=== PATIENT | male | born 1975 | race Caucasian/White ===

== ENCOUNTER 2016-10-17 17:30 | Emergency (ER) | payer MEDICAID ==
[2016-10-17 17:44] VITALS: RESP 16; TEMP 98.2
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
[2016-10-17] MEDS ORDERED: OXYCODONE/APAP 5/325 TAB PO ONE (18:14)
[2016-10-17 19:57] VITALS: BP 130/76; PULSE 86; O2SAT 97
== END 2016-10-17 19:56 | disposition home or self-care (01) ==
DX: S62.114A Nondisplaced fracture of triquetrum [cuneiform] bone, right wrist, initial encounter for closed fracture (principal); S52.514A Nondisplaced fracture of right radial styloid process, initial encounter for closed fracture; V27.4XXA Motorcycle driver injured in collision with fixed or stationary object in traffic accident, initial encounter; Y92.410 Unspecified street and highway as the place of occurrence of the external cause; Y99.8 Other external cause status; Y93.89 Activity, other specified

== ENCOUNTER 2017-03-30 09:08 | Emergency (ER) | payer MEDICAID ==
[2017-03-30 09:16] VITALS: TEMP 97.9
[2017-03-30] MEDS ORDERED: TDAP ADULT 0.5 ML INJ (BOOSTRIX) IM ONE (09:34)
--- NOTE | 2017-03-30 09:47 | EDPHY ---
General Narrative: CHIEF COMPLAINT: Spider bites, cough HISTORY OF PRESENT ILLNESS: Patient complains of spider bite to the left hand and left thigh. He feels this happened 2 days ago. He did not witness it. He is concerned because the 1 on the left finger and left hand "came to a head so I popped it." Mildly painful. He is more concerned about the possibility of infection. He has also had a cough that has been producing mucus only. No fever. No body aches. No neck pain or stiffness. He is concerned because he leaves sleep for the homeless detention. No modifying factors. No other associated complaints REVIEW OF SYSTEMS: Ten systems reviewed and are negative unless otherwise noted in the HPI PCP: [facility] SPECIALISTS: [facility] PAST MEDICAL HISTORY: Attention deficit hyperactivity disorder, ADD, intermittent aggressive explosive disorder, bipolar disorder, neuropathy PAST SURGICAL HISTORY: Appendectomy SOCIAL HISTORY: Nonsmoker. No alcohol. Occasional marijuana. Currently sleeps at the [facility]. 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 Uvula midline. Airway widely patent Neck: Normal inspection, supple, non-tender Respiratory: Lungs are clear to auscultation. No wheezing, rhonchi or crackles. No distress or retractions Cardiovascular: Regular rate and rhythm Gastrointestinal: Abdomen is soft and nontender Back: non-tender, no bony abnormalities Neurological: A&O, nonfocal, normal gait Skin: Warm and dry, no rash. There are 3 small areas of possible vector inoculation. The 1st is on the dorsum of the left little finger. The seconds on the radial aspect of the distal wrist. The 3rd on the medial left thigh. The little finger does have a small area of fluctuance. There is no surrounding cellulitis or edema. No evidence of septic joint. The remaining 2 areas are indurated but have no fluctuance Extremities: Mild tenderness of the left finger inoculation. There is no warmth to the joint. Full flexion extension of all fingers of the left hand without any evidence of septic joint. No cellulitis of the hand or wrist Psychiatric: Mood and affect normal DIFFERENTIAL DIAGNOSES: Including but not limited to vector inoculation, spider bite, abscess, septic joint, pneumonia, influenza MDM: 9:40 a.m. Three areas of possible vector inoculation without any evidence of septic joint. There is a small abscess that can be drained on the left finger. There is no evidence of pneumonia by examination or vitals. He may have a viral bronchitis versus influenza. Flu test has been ordered. I will drain the left little finger abscess. He is asking to speak with rehabilitation case coordinator 10:40 a.m. Influenza swab is pending. Area of fluctuance has been drained and irrigated. Wound has been dressed. I will discharge him on Bactrim and Keflex. Flu test is pending and he can follow up with this later. He is outside the window for Tamiflu. He is comfortable this plan. He will be discharged home after visiting with case management. ED precautions discussed. Follow up with [facility] PROCEDURE: Digital Block Indication: Finger laceration Consent: Verbal Location: Left little finger Anesthesia: Lidocaine 1% plain, 0.25% Marcaine plain, 5mL Description: Base of the finger was prepped. The above was infused without difficulty. Tolerated well. Good anesthesia. Complications: None PROCEDURE: Incision and Drainage Consent: Verbal Location: Left little finger, middle phalanx, dorsal Length: 1 cm Complexity: Simple Anesthesia: Digital block Procedure description: Area was prepped with Betadine. Using sterile technique , the area of fluctuance was incised with an 18 gauge needle. There was approximately 4 mL of purulence expressed. Tolerated well. No complications Expressed: 4 mL as purulent Wound care: Routine as discussed Follow-up: Two days wound check - History Smoking Status: Never smoked - Objective Vital Signs: Initial Vital Signs Temperature (C) 97.9 F 03/30/17 09:14 Heart Rate 70 03/30/17 09:14 Respiratory Rate 17 03/30/17 09:14 Blood Pressure 123/80 H 03/30/17 09:14 O2 Sat (%) 97 03/30/17 09:14 O2 Delivery Mode Room Air Allergies/Adverse Reactions: No Known Allergies Allergy (Verified 03/30/17 09:13) Home Medications: Medication Instructions Recorded Neurontin 10/17/16 Seroquel 10/17/16 Wellbutrin 100mg (*) 10/17/16 Cephalexin [Keflex (*)] 500 mg PO QID #40 cap 03/30/17 Sulfamethox/Tmp 800/160 mg 1 tab PO BID 10 Days tab 03/30/17 [Bactrim Ds] Laboratory Results: 03/30/17 10:00 Influenza A & B (PCR) Pending Medications Given: Discontinued Medications Diphtheria/Tetanus/Acell Pertussis (Boostrix) 0.5 ml IM .ONCE ONE Stop: 03/30/17 09:35 Last Admin: 03/30/17 09:56 Dose: 0.5 ml Departure - Departure Disposition: Home, Routine, Self-Care Clinical Impression: Abscess of finger, left, Cough Condition: Good Instructions: Abscess Follow-up (ED), Abscess (ED), Dextromethorphan (By mouth) , Guaifenesin (By mouth) Additional Instructions: 1. [id number] medications as printed as needed 2. Bactrim as prescribed to completion 3. Keflex as prescribed to completion 4. Follow up with [facility] 5. ED precautions as discussed Referrals: NONE *PRIMARY CARE P,. [Primary Care Provider] - As per Instructions [facility],. [Clinic] - As per Instructions Trino Rangel MD [Medical Doctor] - As per Instructions Prescriptions: Cephalexin [Keflex (*)] 500 mg PO QID #40 cap Sulfamethox/Tmp 800/160 mg [Bactrim Ds] 1 tab PO BID 10 Days tab
[2017-03-30 10:56] VITALS: BP 126/82; PULSE 80; RESP 18; O2SAT 94
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
== END 2017-03-30 10:55 | disposition home or self-care (01) ==
PROC: 0H9GXZZ Drainage of Left Hand Skin, External Approach (ICD-10-PCS; principal; 2017-03-30)
DX: L02.512 Cutaneous abscess of left hand (principal); R05 Cough; Z23 Encounter for immunization

== ENCOUNTER 2017-07-14 12:13 | Emergency (ER) | payer MEDICAID ==
[2017-07-14] MEDS ORDERED: NS 1,000 ML IV ONE (12:51)
[2017-07-14] MEDS ORDERED: IBUPROFEN 600 MG TAB PO ONE (12:51)
[2017-07-14] MEDS ORDERED: predniSONE 20 MG TAB PO ONE (12:51)
[2017-07-14] MEDS ORDERED: ALBUTEROL 3 ML DEYVIAL IH ONE (12:54)
--- NOTE | 2017-07-14 12:54 | EDPHY ---
H & P Time Seen by Provider: 07/14/17 12:38 HPI/ROS: CHIEF COMPLAINT: Cough for 4 months fever and sore throat HISTORY OF PRESENT ILLNESS: This 41-year-old man presents in his chief complaint is "I have been sick for the past 4 months "but describes for me with his girlfriend really the last 2 weeks of being sick. He has got a subjective fever and chills with a cough productive of some green sputum and a sore throat with decreased oral intake. He says symptoms are severe and he feels dehydrated. No vomiting or diarrhea. No night sweats or weight loss and had a negative PPD recently at [facility]. No IV drugs. REVIEW OF SYSTEMS: Eye: no change in vision ENT: Sore throat but no earache Cardiac: no chest pain or syncope Pulmonary: HPI Abdomen: no vomiting, diarrhea, abdominal pain Musculoskeletal: Myalgias but no neck stiffness Skin: no rash Neuro: no headache Constitutional: HPI : no urinary symptoms, but darker than usual A comprehensive 10 point review of systems is otherwise negative aside from elements mentioned in the history of present illness. PAST MEDICAL HISTORY: Depression and anxiety Social history: Nonsmoker, no IV drugs General Appearance: Alert and conversant, cooperative. Eyes: No scleral icterus. ENT, Mouth: Pharyngeal erythema but no exudate, no trismus, mucous membranes are slightly dry. Uvula is midline and tympanic membranes are normal. Respiratory: Extra wheezing bilaterally but no focal lung sounds and speaks in full sentences. Cardiovascular: Regular rate and rhythm. Gastrointestinal: Abdomen is soft and non tender. Nontender over the liver. Neurological: Alert, face symmetric, normal motor and sensory in extremities. Skin: Warm and dry, no rashes. Musculoskeletal: No peripheral edema. Normal range of motion of the neck. Psychiatric: Not agitated. Emergency Department course/MDM: Normal saline 1 L IV and prednisone 40 mg orally. Will give albuterol nebulizer. Chest x-ray. 1500: Patient feels better, speaking full sentences, discharge with albuterol MDI and short course of prednisone. Smoking Status: Never smoked Constitutional: Initial Vital Signs Temperature (C) 37.3 C 07/14/17 12:16 Heart Rate 92 07/14/17 12:16 Respiratory Rate 16 07/14/17 12:16 Blood Pressure 119/89 H 07/14/17 12:16 O2 Sat (%) 97 01/26/18 12:16 O2 Delivery Mode Room Air Allergies/Adverse Reactions: No Known Allergies Allergy (Verified 03/30/17 09:13) Home Medications: Medication Instructions Recorded Neurontin 10/17/16 Seroquel 10/17/16 Wellbutrin 100mg (*) 10/17/16 Cephalexin [Keflex (*)] 500 mg PO QID #40 cap 03/30/17 Sulfamethox/Tmp 800/160 mg 1 tab PO BID 10 Days tab 03/30/17 [Bactrim Ds] Albuterol Hfa Anes Only [Proair 2 puffs IH QID #1 mdi 07/14/17 Hfa Icu (*)] predniSONE [prednisone 20mg (RX)] 40 mg PO DAILY 4 Days tab 07/14/17 Medical Decision Making - Diagnostics Imaging Results: Imaging Impressions Chest X-Ray 07/14/17 12:51 Impression: Prominence of perihilar interstitial markings and peribronchial cuffing. Findings are nonspecific but can be seen with bronchitis, reactive airway disease, or viral process. Imaging: I viewed and interpreted images myself Differential Diagnosis: Differential for cough and sore throat considered including but not limited to urine, strep throat, influenza, bronchitis, pneumonia, tuberculosis. - Data Points Laboratory Results: Laboratory Results 07/14/17 13:05 07/14/17 13:05 07/14/17 07/14/17 13:05 13:05 WBC 13.30 10^3/uL H 10^3/uL (3.80-9.50) RBC 5.36 10^6/uL 10^6/uL (4.40-6.38) Hgb 17.4 g/dL g/dL (13.7-17.5) Hct 49.1 % % (40.0-51.0) MCV 91.6 fL fL (81.5-99.8) MCH 32.5 pg pg (27.9-34.1) MCHC 35.4 g/dL g/dL (32.4-36.7) RDW 12.6 % % (11.5-15.2) Plt Count 210 10^3/uL 10^3/uL (150-400) MPV 9.6 fL fL (8.7-11.7) Neut % (Auto) 78.4 % H % (39.3-74.2) Lymph % (Auto) 11.5 % L % (15.0-45.0) Kings % (Auto) 8.9 % % (4.5-13.0) Eos % (Auto) 0.5 % L % (0.6-7.6) Baso % (Auto) 0.2 % L % (0.3-1.7) Nucleat RBC Rel Count 0.0 % % (0.0-0.2) Absolute Neuts (auto) 10.43 10^3/uL H 10^3/uL (1.70-6.50) Absolute Lymphs (auto) 1.53 10^3/uL 10^3/uL (1.00-3.00) Absolute Monos (auto) 1.18 10^3/uL H 10^3/uL (0.30-0.80) Absolute Eos (auto) 0.07 10^3/uL 10^3/uL (0.03-0.40) Absolute Basos (auto) 0.03 10^3/uL 10^3/uL (0.02-0.10) Absolute Nucleated RBC 0.00 10^3/uL 10^3/uL (0-0.01) Immature Gran % 0.5 % % (0.0-1.1) Immature Gran # 0.06 10^3/uL 10^3/uL (0.00-0.10) Sodium 142 mEq/L mEq/L (135-145) Potassium 4.5 mEq/L mEq/L (3.5-5.2) Chloride 104 mEq/L mEq/L (97-110) Carbon Dioxide 23 mEq/l mEq/l (22-31) Anion Gap 15 mEq/L mEq/L (8-16) BUN 18 mg/dL mg/dL (7-23) Creatinine 1.0 mg/dL mg/dL (0.7-1.3) Estimated GFR > 60 Glucose 104 mg/dL H mg/dL (70-100) Calcium 9.3 mg/dL mg/dL (8.5-10.4) Medications Given: Discontinued Medications Albuterol (Proventil Neb) 3 ml IH EDNOW ONE Stop: 07/14/17 12:55 Last Admin: 07/14/17 13:41 Dose: 3 ml Sodium Chloride (Ns) 1,000 mls @ 0 mls/hr IV EDNOW ONE; Wide Open PRN Reason: Protocol Stop: 07/14/17 12:52 Last Admin: 07/14/17 13:20 Dose: 1,000 mls Ibuprofen (Motrin) 600 mg PO EDNOW ONE Stop: 07/14/17 12:52 Last Admin: 07/14/17 13:39 Dose: 600 mg Prednisone (Prednisone) 40 mg PO EDNOW ONE Stop: 07/14/17 12:52 Last Admin: 07/14/17 13:38 Dose: 40 mg Departure - Departure Disposition: Home, Routine, Self-Care Clinical Impression: URI (upper respiratory infection) Qualifiers: URI type: unspecified viral URI Qualified Code(s): J06.9 - Acute upper respiratory infection, unspecified Pharyngitis Qualifiers: Pharyngitis/tonsillitis etiology: unspecified etiology Qualified Code(s): J02.9 - Acute pharyngitis, unspecified Condition: Good Instructions: Upper Respiratory Infection (ED) Referrals: [facility],. [Clinic] - As per Instructions Prescriptions: Albuterol Hfa Anes Only [Proair Hfa Icu (*)] 2 puffs IH QID #1 mdi predniSONE [prednisone 20mg (RX)] 40 mg PO DAILY 4 Days tab
[2017-07-14 14:21] LABS: PLATELET COUNT 210 10^3/uL (150-400)
[2017-07-14 14:22] VITALS: RESP 18
[2017-07-14 15:56] VITALS: BP 120/60; PULSE 88; TEMP 98.6; O2SAT 95
== END 2017-07-14 15:30 | disposition home or self-care (01) ==
DX: J06.9 Acute upper respiratory infection, unspecified (principal); E86.9 Volume depletion, unspecified
CPT/HCPCS: J7512; J7613

== ENCOUNTER 2017-07-20 14:13 | Emergency (ER) | payer MEDICAID ==
[2017-07-20 14:20] VITALS: RESP 16; TEMP 102.2
[2017-07-20] MEDS ORDERED: ACETAMINOPHEN 500 MG TAB PO ONE (14:33)
[2017-07-20] MEDS ORDERED: ACETAMINOPHEN 500 MG TAB ONE (14:34)
--- NOTE | 2017-07-20 14:48 | EDPHY ---
HPI/HX/ROS/PE/MDM Narrative: CHIEF COMPLAINT: Fever, cough HISTORY OF PRESENT ILLNESS: The patient is a 41 y/o homeless male complaining of a worsening fever and cough for 4 months. On 07/14/16, 5 days ago, he was seen in the ED for similar symptoms and diagnosed with pharyngitis and a URI. They prescribed him an Albuterol inhaler and Prednisone, but he has had no relief of his symptoms. Since his ED visit his symptoms have been worsening, and are exacerbated at night. In addition to the fever and cough, he has had sweats, a sore throat, and vomited twice. Took Ibuprofen 4 hours ago without relief of symptoms. Denies receiving an influenza vaccination this year. Denies history of asthma. No chest pain, shortness of breath, palpitations, diarrhea, urinary complaints, headache, lightheadedness. Reviewed prior medical records including ED visit with Dr. Ghotra on 07/14/17. REVIEW OF SYSTEMS: Aside from elements discussed in the HPI, a comprehensive 10-point review of systems was reviewed and is negative. PAST MEDICAL HISTORY: Depression, anxiety SOCIAL HISTORY: Friend at bedside, no tobacco or IV drug use VITAL SIGNS: Temp: 39.0, others reviewed by me GENERAL: Frustrated, warm to the touch, well-developed, well-nourished, resting comfortably in no respiratory distress. HEENT: Atraumatic. Eyes: No icterus, no injection. Mouth: moist mucous membranes. No erythema or lesions. Neck: supple with no adenopathy. LUNGS: Tachypneic. Clear to auscultation bilaterally, no wheezes, rhonchi or rales. CARDIAC: Mild tachycardia, no rubs, murmurs or gallops. ABDOMEN: Soft, nontender, nondistended, bowel sounds normal. BACK: No CVA tenderness. EXTREMITIES: No trauma. No edema. Range of motion is normal throughout. NEURO: Alert and oriented, grossly nonfocal. SKIN: Warm and dry, no rash. PSYCHIATRIC: Normal mentation, no agitation. Portions of this note were transcribed by a medical services coordinator. I personally performed a history, physical exam, medical decision making, and confirmed accuracy of information the transcribed note. ED Course: The patient is a 41 y/o male presenting with a cough and fever of 39.0 degrees. On exam he is tachypneic and mildly tachycardic. He was diagnosed with a URI and pharyngitis 5 days ago and prescribed an Albuterol inhaler and Prednisone. His symptoms have worsened since being diagnosed. Chest x-ray and labs ordered. 1gm PO Tylenol and 1L IV NS administered. 1524: Patient's chest x-ray reveals worsening bronchitis. 1619: Spoke with case management regarding this patient. Patient is homeless. He and his tech writer have both been frustrated with the inability to be provided with a place to rest. Case management evaluated the patient and the situation. Unfortunately, the shelters to require that the patient's leave during the day. She will talk to the patient regarding a follow up visit with his PCP. 1637: Patient has influenza B. 1640: Reassessed patient and discussed imaging and laboratory findings. I stressed to the patient and his tech writer the importance of resting when able. He is feeling improved with fluids. Azithromycin has been added to his regiment given the length of cough and provided him with prescriptions for Tylenol and ibuprofen. Return precautions provided; patient is comfortable with this plan. MDM: Differential diagnosis for the patient's cough was considered including but not limited to viral versus bacterial bronchitis, asthma, influenza, pneumonia, pulmonary emboli, upper respiratory infection, lower respiratory infection, and bronchospasm. - Data Points Imaging Results: Impression: 1. Mild bronchitis/airways disease. 2. No definite focal pneumonia. Dictated By: Vladimir Hines Imaging: I viewed and interpreted images myself Laboratory Results: Laboratory Results 07/20/17 15:20 07/20/17 15:20 Medications Given: Discontinued Medications Acetaminophen (Tylenol) 1,000 mg PO EDNOW ONE Stop: 07/20/17 14:34 Last Admin: 07/20/17 14:36 Dose: 1,000 mg Azithromycin (Zithromax) 500 mg PO EDNOW ONE PRN Reason: Protocol Stop: 07/20/17 15:40 Last Admin: 07/20/17 17:16 Dose: 500 mg Sodium Chloride (Ns) 1,000 mls @ 0 mls/hr IV ONCE ONE; Wide Open PRN Reason: Protocol Stop: 07/20/17 14:58 Last Admin: 07/20/17 15:17 Dose: 1,000 mls General Time Seen by Provider: 07/20/17 14:47 Initial Vital Signs: Initial Vital Signs Temperature (C) 39.0 C H 07/20/17 14:18 Heart Rate 102 H 07/20/17 14:18 Respiratory Rate 16 07/20/17 14:18 Blood Pressure 138/84 H 07/20/17 14:18 O2 Sat (%) 97 07/20/17 14:18 O2 Delivery Mode Room Air Allergies/Adverse Reactions: No Known Allergies Allergy (Verified 03/30/17 09:13) Home Medications: Medication Instructions Recorded Neurontin 10/17/16 Seroquel 10/17/16 Wellbutrin 100mg (*) 10/17/16 Acetaminophen [Tylenol 325mg (*)] 650 mg PO Q4 PRN #30 tab 07/20/17 Azithromycin [Zithromax] 250 mg PO DAILY #4 tab 07/20/17 Ibuprofen 600 mg PO Q8 PRN #20 tablet 07/20/17 Departure - Departure Disposition: Home, Routine, Self-Care Clinical Impression: Bronchitis, Influenza B Condition: Good Instructions: Influenza (ED), Acute Bronchitis (ED) Additional Instructions: Take Azithromycin as prescribed for bronchitis. You have an appointment with [facility] on Monday07/26/17 at 12pm ( arrive by 11:40am) at the [facility] at [address] Please be sure to make this appointment as it important for you to receive follow up care. Return to the Emergency Department for fever, chest pain, shortness of breath, increasing pain or other worsening of condition. Referrals: [facility],. [Clinic] - As per Instructions Prescriptions: Acetaminophen [Tylenol 325mg (*)] 650 mg PO Q4 PRN #30 tab PRN Reason: fever Azithromycin [Zithromax] 250 mg PO DAILY #4 tab Ibuprofen 600 mg PO Q8 PRN #20 tablet PRN Reason: fever Report Scribed for: Luzmaria Dixon Report Scribed by: Cassie Carlos Date of Report: 07/20/17 Time of Report: 14:48
[2017-07-20] MEDS ORDERED: NS 1,000 ML IV ONE (14:57)
[2017-07-20 15:28] LABS: PLATELET COUNT 146 10^3/uL (150-400)
[2017-07-20] MEDS ORDERED: AZITHROMYCIN 250 MG TAB PO ONE (15:39)
--- NOTE | 2017-07-20 17:02 | ASDISCHSUM ---
Discharge Information Plan Status:Homeless/[facility] Medically Cleared to Leave: Discharge Date: CM D/C Disposition:Streets (Homeless) ADT D/C Disposition:Home, Routine, Self-Care Projected Discharge Date: Transportation at D/C:None or Unknown Discharge Delay Reason: Follow-Up Date: Discharge Slot: Final Diagnosis: Placement Information Patient Contact Information Contact Name:ANDRE Relationship:Mother Address: Work Phone: City:[place] Alternate Phone: State/Zip Code:[place] Email: Financial Information Financial Class: Primary Plan Desc:MEDICAID [facility] [employer] Primary Plan Number:[id number] Secondary Plan Desc: Secondary Plan Number: Assessment Information [facility] CM Progress Note CM Note CM Note Notes: Spoke with patient about his recent ED visits and need to follow up with [facility]. Patient states he hadn't followed up because his symptoms worsened so he returned to the ED. Spoke to Carolyn at [facility] and said pt recently had a no-show appt and has a few other past no-show/cancellation appts; last time patient was seen at was in April 2017. Patient accompanied to the ED by a friend. Patient has been staying at the half-way and states their Case Mgmt "hasn't helped them with anything." When asked about progress towards finding housing, patient states he has been refused all housing due to his past criminal history (event from 23 y.a.). Patient is still current with the [facility] PACE program and that they have completed the VAT assessment for him but told him to call back in several months. Patient provided a follow-up appt w/[facility] at the [facility] on 07/26/17 at 12pm. Pt knows to arrive by 11:40am. Patient provided prescriptions for Tylenol and Ibuprofen. CM available for further assistance if needed. Date Signed: 07/20/2017 04:59 PM Electronically Signed By:Ronda Brunner RN LACE LACE Acuity / Level of Answers: No Care: Did the patient have an inpatient admission? 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 Discussed need for follow up, rest, etc.
[2017-07-20 17:32] VITALS: BP 128/74; PULSE 89; O2SAT 94
== END 2017-07-20 17:32 | disposition home or self-care (01) ==
DX: J10.1 Influenza due to other identified influenza virus with other respiratory manifestations (principal); J20.9 Acute bronchitis, unspecified; E86.9 Volume depletion, unspecified

== ENCOUNTER 2017-08-27 18:56 | Emergency (ER) | payer MEDICAID ==
[2017-08-27 19:03] VITALS: RESP 16
--- NOTE | 2017-08-27 19:41 | EDPHY ---
General Time Seen by Provider: 08/27/17 19:36 Narrative: CHIEF COMPLAINT: "spider bite" HISTORY OF PRESENT ILLNESS: Patient complains of left hip "spider bite." He says [facility] night thinks he was bit by a spider. He has had some redness , pain and subjective fever. No difficulty moving the hip but it is painful when he does so. No trauma or injury. He denies any instrumentation to the area or IV drug injection. He has had previous abscess the hand in the past. Tetanus up-to-date. No other associated complaints or modifying factors. REVIEW OF SYSTEMS: Ten systems reviewed and are negative unless otherwise noted in the HPI PCP: None SPECIALISTS: None PAST MEDICAL HISTORY: Insomnia, hep C positive, anxiety, depression PAST SURGICAL HISTORY: No recent surgeries. Previous incision and drainage of abscess of the hand SOCIAL HISTORY: Nonsmoker. No alcohol use. Occasional marijuana use. Does not currently work FAMILY HISTORY: Noncontributory EXAMINATION General Appearance: Alert, no distress Head: normocephalic, atraumatic Eyes: Pupils equal and round, no conjunctival pallor or injection ENT, Mouth: Mucous membranes moist Neck: Normal inspection, supple, non-tender Respiratory: No retractions or distress Cardiovascular: Regular rate. Symmetric DP and PT pulses 2+. Neurological: A&O, nonfocal, normal gait Skin: Warm and dry, no rash. There is mild erythema and fluctuance to the left lateral thigh, proximally. There is no warmth. This expands only 2 cm in diameter. Minimal spontaneous drainage. There is no warmth to the hip. No evidence of septic joint. Extremities: Nontender, no pedal edema. Symmetric range of motion. Psychiatric: Mood and affect normal DIFFERENTIAL DIAGNOSES: Including but not limited to abscess, phlebitis, cellulitis, infected sebaceous cyst, spider bite MDM: 7:45 p.m. Left hip abscess that is small but will need incision and drainage. No evidence of septic hip or extensive cellulitis. No abnormality otherwise. He is neurovascular intact in the left lower extremity. 8:20 p.m. Left proximal thigh/hip abscess has been drained without complication. This was tolerated very well. There is good reduction of purulence. I have applied a dressing. We discussed Bactrim and Keflex of the 1st doses are given here with prepack. We discussed warm compresses and anti-inflammatories. We discussed repeat examination 48 hr here or at [facility]. We discussed ED precautions for any worsening symptoms, hip pain, fever. He is comfortable this plan and discharged home stable condition. PROCEDURE: Incision and Drainage Consent: Verbal Location: Left proximal, lateral thigh Length: 2 cm Complexity: Simple Anesthesia: Local per 1% lidocaine with epinephrine. 7 mL Procedure description: After time-out and consent, the area was prepped with chlorhexidine x2. Anesthesia as above infused. after good anesthesia, the area was prepped in common sterile fashion. 15. Blade was used to make a 1.5 cm incision along lingers lines. I was able to explore with sterile glove and pickups and break up loculations. There was 5 mL of purulence expressed. Minimal serosanguineous fluid. Dressing placed. Tolerated well. No packing in place. Expressed: 5 mL purulent Packing: None Wound care: Daily as discussed Follow-up: 48 hr wound check SUPERVISION: This patient was independently evaluated without direct involvement of or examination by the attending physician. - History Smoking Status: Never smoked - Objective Vital Signs: Initial Vital Signs Temperature (C) 97.3 F 08/27/17 19:01 Heart Rate 81 08/27/17 19:01 Respiratory Rate 16 08/27/17 19:01 Blood Pressure 125/75 H 08/27/17 19:01 O2 Sat (%) 99 08/27/17 19:01 O2 Delivery Mode Room Air Allergies/Adverse Reactions: No Known Allergies Allergy (Verified 03/30/17 09:13) Home Medications: Medication Instructions Recorded Neurontin 10/17/16 Seroquel 10/17/16 Wellbutrin 100mg (*) 10/17/16 Acetaminophen [Tylenol 325mg (*)] 650 mg PO Q4 PRN #30 tab 07/20/17 Ibuprofen 600 mg PO Q8 PRN #20 tablet 07/20/17 Cephalexin [Keflex (*)] 500 mg PO QID #36 cap 08/27/17 Sulfamethox/Tmp 800/160 mg 1 tab PO BID 10 Days tab 08/27/17 [Bactrim Ds] Departure - Departure Disposition: Home, Routine, Self-Care Clinical Impression: Abscess of left lower extremity Condition: Good Instructions: Sulfamethoxazole/Trimethoprim (By mouth), Cephalexin (By mouth) Additional Instructions: 1. Bactrim and Keflex as prescribed completion 2. Change or dressing once daily as needed 3. No swimming pools or hot tubs until wound is completely healed 4. Return here in 48 hr for wound check or follow up [facility] 48 hr for wound check 5. ED precautions as discussed Referrals: [facility],. [Clinic] - As per Instructions Prescriptions: Cephalexin [Keflex (*)] 500 mg PO QID #36 cap Sulfamethox/Tmp 800/160 mg [Bactrim Ds] 1 tab PO BID 10 Days tab
[2017-08-27] MEDS ORDERED: CEPHALEXIN 500MG PREPACK#4 BTL TAKEHOME ONE (19:49)
[2017-08-27] MEDS ORDERED: SULFAMET/TMP DS PREPACK#2 BTL TAKEHOME ONE (19:49)
[2017-08-27 20:32] VITALS: BP 133/77; PULSE 85; TEMP 98.6; O2SAT 96
== END 2017-08-27 20:32 | disposition home or self-care (01) ==
PROC: 0H9LXZZ Drainage of Left Lower Leg Skin, External Approach (ICD-10-PCS; principal; 2017-08-27)
DX: L02.416 Cutaneous abscess of left lower limb (principal)

== ENCOUNTER 2017-10-08 08:37 | Emergency (ER) | payer MEDICAID ==
[2017-10-08 08:50] VITALS: BP 114/83
--- NOTE | 2017-10-08 08:54 | EDPHY ---
H & P Stated Complaint: Sore throat,multiple c/o x 3 days Time Seen by Provider: 10/08/17 08:54 - Personal History Current Tetanus Diphtheria and Acellular Pertussis (TDAP): Yes Tetanus Vaccine Date: < 10 YEARS - Medical/Surgical History Hx Asthma: No Hx Chronic Respiratory Disease: No Hx Diabetes: No Hx Cardiac Disease: No Hx Renal Disease: No Hx Cirrhosis: No Hx Alcoholism: No Hx HIV/AIDS: No Hx Splenectomy or Spleen Trauma: No Other PMH: insomnia, anxiety, depression, hep c+ - Social History Smoking Status: Never smoked Constitutional: Initial Vital Signs Temperature (C) 37.8 C 10/08/17 08:47 Heart Rate 96 10/08/17 08:47 Respiratory Rate 18 10/08/17 08:47 Blood Pressure 114/83 H 10/08/17 08:47 O2 Sat (%) 95 10/08/17 08:47 O2 Delivery Mode Room Air Allergies/Adverse Reactions: No Known Allergies Allergy (Verified 10/08/17 08:46) Home Medications: Medication Instructions Recorded Neurontin 10/17/16 Seroquel 10/17/16 Wellbutrin 100mg (*) 10/17/16 Medical Decision Making ED Course/Re-evaluation: CHIEF COMPLAINT: Sore throat, subjective fever HISTORY OF PRESENT ILLNESS: The patient is a homeless 42 y/o male with a history of hepatitis C complaining of a sore throat and intermittent subjective fever for the last 3 days. He's had some occasional nausea and vomiting, but does report lose of appetite. He had one looser stool this morning and thinks he could have eaten something at the correction He is using ibuprofen for fever. He denies abdominal pain, inability to drink, dyspnea, chest pain, urinary symptoms. REVIEW OF SYSTEMS: A 10 point review of systems was performed and is negative with the exception of the elements mentioned in the history of present illness. PHYSICAL EXAM: HR, BP, O2 Sat, RR. Temp noted General Appearance: Alert, well hydrated, appropriate, and non-toxic appearing. Head: Atraumatic without scalp tenderness or obvious injury Eyes: Pupils equal, round, reactive to light and accommodation, EOMI, no trauma , no injection. Ears: Clear bilaterally, no perforation, normal landmarks Nose: Atraumatic, no rhinorrhea, clear. Throat: There is mild erythema that could be related to a red cough drop the patient consumed prior to exam, no exudates, no lesions, normal tonsils, mucus membranes moist. Neck: Supple,nontender, no lymphadenopathy. Respiratory: No retractions, no distress, no wheezes, and no accessory muscle use. Lungs are clear to auscultation bilaterally. Cardiovascular: Regular rate and rhythm, no murmurs, rubs, or gallops. Good capillary refill all extremities. Gastrointestinal: Abdomen is soft, nontender, non-distended, no masses, no rebound, no guarding, no peritoneal signs. Musculoskeletal: Normal active ROM of all extremities, atraumatic. Neurological: Alert, appropriate, and interactive. The patient has non-focal cranial nerves, motor, sensory, and cerebellar exam. Skin: No rashes, good turgor, no nodules on palpation. Past medical history: insomnia, anxiety, depression, hepatitis c+ Past surgical history: denies Family history: noncontributory Social history: Homeless, family member at bedside, smoker DIFFERENTIAL DIAGNOSIS: The differential diagnosis for the patient's symptoms included but was not limited to pharyngitis, bronchitis, urinary tract infection , viral syndrome. MEDICAL DECISION MAKING: This is a generally well-appearing 42 y/o male who presents with a 3-day history of intermittent sore throat and subjective fever. He has slight pharyngeal erythema on exam, but this may be related to a red cough drop he just consumed. His mucous membranes are moist, lungs are clear, abdomen is benign, and he is afebrile. Does not appear septic. He is able to tolerate PO fluids. Presentation consistent with uncomplicated viral syndrome. Plan for treatment with 40mg PO prednisone and 500mg PO Tylenol here and standard viral syndrome care instructions for home. Follow up instructions discussed. He agrees with plan. - Data Points Medications Given: Discontinued Medications Acetaminophen (Tylenol) 500 mg PO EDNOW ONE Stop: 10/08/17 09:08 Last Admin: 10/08/17 09:09 Dose: 500 mg Prednisone (Prednisone) 40 mg PO EDNOW ONE Stop: 10/08/17 08:59 Last Admin: 10/08/17 09:07 Dose: 40 mg Departure - Departure Disposition: Home, Routine, Self-Care Clinical Impression: Viral syndrome Condition: Good Instructions: Viral Syndrome (ED) Additional Instructions: 1. Use Tylenol and ibuprofen as directed on the packaging as needed for symptoms over the next few days. 2. Increase fluid intake. 3. Follow up with your primary care provider for unimproved symptoms over the next week. Referrals: [facility],. [Clinic] - As per Instructions Report Scribed for: Rai Hart Report Scribed by: Andie Otoole Date of Report: 10/08/17 Time of Report: 09:01
[2017-10-08] MEDS ORDERED: predniSONE 20 MG TAB PO ONE (08:58)
[2017-10-08] MEDS ORDERED: ACETAMINOPHEN 500 MG TAB PO ONE (09:07)
== END 2017-10-08 09:12 | disposition home or self-care (01) ==
DX: B34.9 Viral infection, unspecified (principal)
CPT/HCPCS: J7512

== ENCOUNTER 2017-12-19 05:52 | Emergency (ER) | payer MEDICAID ==
--- NOTE | 2017-12-19 06:00 | EDPHY ---
H & P Time Seen by Provider: 12/19/17 06:00 HPI/ROS: HPI CHIEF COMPLAINT: Multiple skin lesions and sores HISTORY OF PRESENT ILLNESS: 42-year-old male, homeless, denies any significant medical history except for mental illness, he presents emergency room with multiple sores throughout his body he has multiple sores that are very small around 2 cm in circumference mainly on his abdomen additionally he has another discrete lesion 4 cm in circumference on his left gluteus, and additionally another lesion at the top of his scrotum on the left side. These areas are circumferential erythematous with heads present. Patient states he has been draining them. Additionally there indurated. These are not fluctuant. Past Medical History: Bipolar disorder. Past Surgical History: Denies recent surgery Social History: Homeless, denies drugs alcohol tobacco. Family History: Noncontributory ROS REVIEW OF SYSTEMS: A comprehensive 10 point review of systems is otherwise negative aside from elements mentioned in the history of present illness. Exam Constitutional nontoxic appearing, vital signs reviewed, triage nursing summary reviewed, vital signs reviewed, awake/alert. Eyes normal conjunctivae and sclera, EOMI, PERRLA. HENT normal inspection, atraumatic, moist mucus membranes, no epistaxis, neck supple/ no meningismus, no raccoon eyes. Respiratory clear to auscultation bilaterally, normal breath sounds, no respiratory distress, no wheezing. Cardiovascular rate normal, regular rhythm, no murmur, no edema, distal pulses normal. Gastrointestinal soft, non-tender, no rebound, no guarding, normal bowel sounds, no distension, no pulsatile mass. Genitourinary no CVA tenderness. Musculoskeletal no midline vertebral tenderness, full range of motion, no calf swelling, no tenderness of extremities, no meningismus, good pulses, neurovascularly intact. Skin multiple sores throughout his body he has multiple sores that are very small around 2 cm in circumference mainly on his abdomen additionally he has another discrete lesion 4 cm in circumference on his left gluteus, and additionally another lesion at the top of his scrotum on the left side. Neurologic awake, alert and oriented x 3, AAOx3, moves all 4 extremities equally, motor intact, sensory intact, CN II-XII intact, normal cerebellar, normal vision, normal speech. Psychiatric normal mood/affect. Heme/Lymph/Immune no lymphadenopathy. Differential Diagnosis: Includes but is not limited to in a particular multiple areas cellulitis, MRSA infection, strep infection Medical Decision Making: Plan for this patient I did do a bedside ultrasound to visualize these areas of cellulitis there is no pus pocket on any them or significant fluctuance. There indurated. They do have heads. Some of them have been draining. Specifically I placed the probe on the left groin cellulitis, does not involve the scrotum, and placed the ultrasound probe on his left gluteus area of cellulitis there is no pus pocket that can be drained on either the sites. It is indurated and cellulitic. I recommend to the patient that he performs warm compresses 2 to 3 times a day, take antibiotics as prescribed. If they get worse more swollen or she develops fever more tender or they get larger he should return emergency room for evaluation. Discussed this at length with the patient. He is homeless. He understands if he gets worse to return here. Prescription provided for Keflex and Bactrim 1st dose given in the emergency room. Recommend warm compresses. Return precautions discussed he understands. He Is comfortable this plan. Ibuprofen 800 mg for pain control. Source: Patient - Personal History Tetanus Vaccine Date: < 10 YEARS - Medical/Surgical History Hx Asthma: No Hx Chronic Respiratory Disease: No Hx Diabetes: No Hx Cardiac Disease: No Hx Renal Disease: No Hx Cirrhosis: No Hx Alcoholism: No Hx HIV/AIDS: No Hx Splenectomy or Spleen Trauma: No Other PMH: insomnia, anxiety, depression, hep c+ - Social History Smoking Status: Never smoked Constitutional: Initial Vital Signs Temperature (C) 36.4 C 12/19/17 05:58 Heart Rate 90 12/19/17 05:58 Respiratory Rate 18 12/19/17 05:58 Blood Pressure 121/84 H 12/19/17 05:58 O2 Sat (%) 97 12/19/17 05:58 O2 Delivery Mode Room Air Allergies/Adverse Reactions: No Known Allergies Allergy (Verified 12/19/17 06:04) Home Medications: Medication Instructions Recorded Neurontin 10/17/16 Seroquel 10/17/16 Wellbutrin 100mg (*) 10/17/16 Cephalexin [Keflex] 500 mg PO Q6H #28 cap 12/19/17 Ibuprofen [Motrin (*)] 800 mg PO Q6-8PRN #20 tab 12/19/17 Sulfamethox/Tmp 800/160 mg 1 tab PO BID@1000,2200 #14 tab 12/19/17 [Bactrim Ds] Departure - Departure Disposition: Home, Routine, Self-Care Clinical Impression: Cellulitis Qualifiers: Site of cellulitis: unspecified site Qualified Code(s): L03.90 - Cellulitis, unspecified Condition: Good Instructions: Cellulitis (ED) Additional Instructions: 1. Warm compresses a possible 2 to 3 times a day. 2. Antibiotics as prescribed 3. Anti inflammatory pain medicine. 4. Return emergency room if you have worsening pain, swelling, fever questions or concerns. Referrals: NONE *PRIMARY CARE P,. [Primary Care Provider] - As per Instructions [facility],. [Clinic] - As per Instructions Prescriptions: Cephalexin [Keflex] 500 mg PO Q6H #28 cap Ibuprofen [Motrin (*)] 800 mg PO Q6-8PRN #20 tab Sulfamethox/Tmp 800/160 mg [Bactrim Ds] 1 tab PO BID@1000,2200 #14 tab
[2017-12-19 06:04] VITALS: BP 121/84
[2017-12-19] MEDS ORDERED: CEPHALEXIN 500 MG CAP PO ONE (06:18)
[2017-12-19] MEDS ORDERED: SULFAMET/TMP DS PREPACK#2 BTL TAKEHOME ONE (06:18)
[2017-12-19] MEDS ORDERED: SULFAMETHOX/TMP 800/160 MG 1 TAB PO ONE (06:18)
[2017-12-19] MEDS ORDERED: IBUPROFEN 800 MG TAB PO ONE (06:18)
[2017-12-19] MEDS ORDERED: CEPHALEXIN 500MG PREPACK#4 BTL TAKEHOME ONE (06:18)
== END 2017-12-19 06:38 | disposition home or self-care (01) ==
DX: L03.311 Cellulitis of abdominal wall (principal); L03.317 Cellulitis of buttock